=== PATIENT | female | born 1960 | race Caucasian/White ===

== ENCOUNTER 2025-10-07 11:18 | Emergency (ER) | payer OTHER, SELFPAY ==
--- OUTSIDE RECORDS SUMMARY | 2025-10-07 11:22 | XMS_ITS | Clinical Summary ---
Author Organization [facility] Address [address] [place] [address] Care Team Providers Care Career Coordinator Name Role Phone Rafal Glynn MD Primary Care Provider [phone]- [phone] Allergies Active AllergyReactionsCriticalityNoted DavsAensrbctVytdxjgxmzrVvjj89/02/2007 Nsaids (Non-Steroidal Anti-Inflammatory Drug)01/22/2007 stomach upset YyhupeorszlPzvj45/02/2007 Medications MedicationSigDispense QuantityRefillsLast FilledStart DateEnd DateStatus fluticasone (50 mcg per actuation) nasal solution (FLONASE) Indications:Recurrent sinusitis,Dysfunction of both eustachian tubesInhale 1 [place] to both nostrils two times daily. 48 g 4Active propranoloL (INDERAL) 40 mg tablet Indications:Migraine without aura and without status migrainosus, not intractableTake 1 Tablet (40 mg) by mouth two times daily. 180 Tablet 5Active lisinopriL (PRINIVIL; ZESTRIL) 10 mg tablet Indications:Essential hypertensionTake 1 Tablet (10 mg) by mouth once daily. 90 Tablet 5Active Cranberry 500 mg cap Take 1 Capsule (500 mg) by mouth two times daily.5Active cholecalciferol (Vitamin D-3) 2,000 unit capsule Take 1 Capsule (2,000 units) by mouth once daily.5Active meloxicam 15 mg tablet Indications:Primary osteoarthritis of right knee,Primary osteoarthritis of left kneeTake 1 Tablet (15 mg) by mouth once daily. Take with food. Avoid OTC NSAIDS (ibuprofen, aleeve, advil) while you are taking this medication. 90 Tablet 5Active meloxicam 15 mg tablet Indications:Primary osteoarthritis of right knee,Primary osteoarthritis of left kneeTake 1 Tablet (15 mg) by mouth once daily. 28 Tablet Discontinued(Reorder (E-cancel not sent)) Active Problems ProblemNoted DateDiagnosed DateEssential gcdmibvamvaj67/02/2024eactive airway disease, mild intermittent, ysqcazuegscft13/18/2024eviated mfnalx6104/09/2024 Migraine without aura and without status migrainosus, not leginuuxgiz64/14/2015 Rectal mckizqpn33/13/2011 Overview (08/04/2011): Colonoscopy 07/2011 normal repeat in 10 years Degenerative arthritis of left knee06/10/2010Carpal tunnel fejctqpq24/02/2007 Headache(784.0)01/22/2007Esophageal bixzbm1601/22/2007 Overview (11/30/2009): EGD 11/2008 normal Other functional disorder of uvjeoyv9801/22/2007 Overview (08/31/2007): Due to uterine fibroids. Encounters DateTypeDepartmentCare WrwrWbfnfaqnnsa91/28/2025 9:40 AM CSTAncillary Procedure [facility] [address] [place] [address] 09/18/20253187Njdwuq18/11/2025 3:00 PM CSTAncillary Procedure [facility] [address] [place] [address] 09/02/2025 2:45 PM CSTAncillary Procedure [facility] [address] [place] [address] 09/02/2025 2:20 PM CSTOffice Visit [facility] [address] [place] [address] Lokesh Wagner, Hip Pain/problem (Bilateral hip)09/01/20252708Ermrjh46/22/2025 4:15 PM CDTAncillary Procedure [facility] [address] [place] [address] 08/13/20253253Wgjtao51/21/2025 3:00 PM CDTOrders Only [facility] [address] [place] [address] [place], [place] [facility]08/11/20251962Uduhcl12/10/2025 1:10 PM CDTOffice Visit [facility] [address] [place] [address] Paula Beck PA Leg Pain/problem (Painful legs and hips. Does have Arthritis. Pain in soreness in muscle upper legs. Feels that there is some overcompensating when walking. Legs feel fatigued, at bed time hurt really bad. Discuss Lyme's. Have had a tick imbedded 2023 (June.) Reports that there was a circular rash. Pain level has been 10/10 on pain aid scale. )07/31/2025Travelfrom Last 3 Months Immunizations ImmunizationAdministration DatesNext DueAMB Influenza, IIV4 PF (=>6 mos Flulaval,Fluzone Fluarix)(Flu Clinic Only)07/22/2020,07/11/2014COVID-19 VACCINE SPIKEVAX (MODERNA 50MCG/0.5ML) 12YO+ PFS4COVID-19 vaccine (Karisma Kidz- BioNTech 30mcg/0.3mL) PF, MDV110/25/2020INFLUENZA, IIV3 PF (AGE >= 6 MO) 07/24/2024Influenza A (H1N1), Myasujnuxtq72/12/2010Influenza A (H1N1), Inactivated (Age >=3 Years)11/03/2009Influenza, IIV3 (Age 6-35 mos)09/15/2009 Influenza, IIV3 (Age >=3 years)10/07/2013,09/28/2012,07/13/2011,08/26/2009, 09/22/2008,08/31/2007,08/09/2006,08/27/2005,09/13/2003Influenza, HIW287/, 08/01/2022,08/11/2021,07/11/2019,11/07/2016,09/04/2015,07/11/2014RSV, Recombinant ADJ Reconstituted (Arexvy 120MCG/0.5mL)12/02/2023Td (Age >=7 Years) 08/09/2006Td, Preservative Free (age >= 7 Years)08/09/2006Tdap01/03/2025, 10/01/2012 Family History Medical HistoryRelationNameCommentsHypertensionBrother 1KenHypertensionBrother 2 DanThyroid DiseaseBrother 3DavidArthritisFatherElmerHyperlipidemiaFatherElmer HypertensionFatherElmerOsteoarthritisFatherElmerRheum arthritisFatherElmer ArthritisMaternal GrandfatherArthritisMaternal GrandmotherMarthaHypertension Maternal GrandmotherMarthaThyroid DiseaseMaternal GrandmotherMartha HyperlipidemiaMotherDorothyHypertensionMotherDorothyOtherMotherDorothydied of old age and a hip fx at 89CancerPaternal AuntAliceCancer-breastPaternal Aunt AliceArthritisPaternal GrandfatherArthritisPaternal GrandmotherEmmaHypertension Paternal GrandmotherEmmaThyroid DiseasePaternal GrandmotherEmmaCancer-ovarianNo Family HistoryRelationNameStatusCommentsBrother 1KenBrother 2DanBrother 3David FatherElmerDeceasedMaternal GrandfatherMaternal GrandmotherMarthaMotherDorothy DeceasedPaternal AuntAlicePaternal GrandfatherPaternal GrandmotherEmma Social History Tobacco UseTypesPacks/DayYears UsedDateSmoking Tobacco: NeverSmokeless Tobacco: Never Tobacco Cessation:Counseling Given: No Alcohol UseStandard Drinks/WeekCommentsNot Currently0 (1 standard drink = 0.6 oz pure alcohol)1 drink per monthPHQ-2AnswerDate RecordedPHQ-2 TOTAL SCORE0 06/12/2024Social ConnectionsAnswerDate RecordedDo you often feel lonely or isolated from those around you?Financial Resource StrainAnswerDate RecordedDifficulty of Paying Living Vfmbgtpo516/09/2025Difficulty of Paying Living ExpensesNot on file07/31/2025Food InsecurityAnswerDate RecordedDo you worry your food will run out before you are able to buy more? 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 Not on fileNot on file Last Filed Vital Signs Vital SignReadingTime TakenCommentsBlood Wkrsmamn954/8210 1:07 PM CDT Bffbj828708/01/2025 1:07 PM AELQaxrnhjlsss96.6 ??C (97.9 ??F)02/16/2025 9:12 AM CDTRespiratory Chzg912502/16/2025 9:12 AM CDTOxygen Alqpzphzvu71%08/01/2025 1:07 PM CDTInhaled Oxygen Concentration--Xqrpnu784.2 kg (287 lb)08/01/2025 1:07 PM KRITaigzp682 cm (5' 2.6)01/03/2025 2:41 PM CDTBody Mass Index51.49001/03/2025 2:41 PM CDT Plan of Treatment DateTypeDepartmentCare Team (Latest Contact Info)Adlraggchbv72/19/2026 10:00 AM CSTOffice Visit [facility] [address] [address] [place] [address] [place] [address] Health MaintenanceDue DateLast DoneCommentsHIV for age 15-Pap test for age 21-, 08/31/2007Pneumococcal series for age 50+ (1 of 1 - PCV)2012Zoster (shingles) series for age 50+ (1 of 2)2012 Depression screening for age 12+/, 06/18/2022, 06/15/2022, Additional history existsInfluenza Vaccine (#1)/11/2023, 10/18/2023, 08/01/2022, Additional history existsBMI (ht and wt on same day) for age 18+ 6001/03/2025, 03/15/2023, 09/12/2021, Additional history existsMammogram for age 45-756111/19/2024, 09/06/2024, 08/07/2023, Additional history existsLipids for age 45-750//08/2025, 03/22/2023, 05/17/2021, Additional history existsColonoscopy through age 750//01/2022, 10/26/2021, 08/04/2011Tetanus etrzouc08/14/86640201/03/2025, 10/01/2012, 08/09/2006, Additional history existsHepatitis C screening for age 18-79 Cgfksetet79/26/2021SV vaccine for adults or urpuwtykhWtpnzykkh28/10/2024COVID- 19 vaccine gbadefGykhoilxh04/26/2025, 07/24/2024, 12/02/2023, Additional history existsHepatitis B series for 19+Aged OutNo longer eligible based on patient's age to complete this topic Procedures Procedure NamePriorityDate/TimeAssociated DiagnosisCommentsXR MAMMO THAO BILAT NQCTGYAnnvmgb98/28/2025 9:48 AM COACH CLEANER Encounter for screening mammogram for malignant neoplasm of breast XR KNEE 1 VIEW NHMTXEJNWMmsaqnp93/11/2025 2:53 PM COACH CLEANER Chronic pain of left knee Chronic pain of right knee XR KNEE 3 VIEWS HTNPJcqamho57/11/2025 2:53 PM COACH CLEANER Chronic pain of left knee XR HIP 2 VIEWS WO PELVIS YZXDHXjxhivi78/22/2025 4:28 PM CDT Hip pain, right SJOGRENS CAULEJQGZZZchgygo38/21/2025 2:10 PM CDT Positive BRENDA (antinuclear antibody) ANTISCLERODERMA 70 OYZDLLVITPMxhpvhq04/21/2025 2:10 PM CDT Positive BRENDA (antinuclear antibody) ANTI-PUWHWPheziat04/21/2025 2:10 PM CDT Positive BRENDA (antinuclear antibody) DNA DOUBLE-STRANDED (DSDNA) ANTIBODIES BY CRITHIDIA LUCILIAE IFARoutine 08/12/2025 2:10 PM CDT Positive BRENDA (antinuclear antibody) RA USNLILASKMWFGqonjyo33/21/2025 2:10 PM CDT Positive BRENDA (antinuclear antibody) CYCLIC CITRULLINE JAEWGYIGjezbrx15/21/2025 2:10 PM CDT Positive BRENDA (antinuclear antibody) ANTINUCLEAR ANTIBODIES TITER AND PATTERN ([facility] REFLEX ONLY)Uyubjoo3008/01/2025 1:58 PM CDT Proximal limb muscle weakness CBC WITH AUTO HKEVQQKGDBMVXpigswi47/10/2025 1:58 PM CDT Proximal limb muscle weakness Fatigue, unspecified type HXHJZYNHTlehdyn24/10/2025 1:58 PM CDT Proximal limb muscle weakness Fatigue, unspecified type EHRLICHIA CHAFFEENSIS DNA REAL TIME PCR ([facility])Tblfjdd0108/01/2025 1:58 PM CDT Proximal limb muscle weakness Fatigue, unspecified type ANAPLASMA PHAGOCYTOPHILUM DNA, QL REAL TIME PCR ([facility])Juzopzl6308/01/2025 1:58 PM CDT Proximal limb muscle weakness Fatigue, unspecified type CBC WITH AUTO TXDLSQPZYSDSZqnhwmy81/10/2025 1:58 PM CDT Proximal limb muscle weakness Fatigue, unspecified type LYME SCREEN W/XPUMPWJiasvxj87/10/2025 1:58 PM CDT Proximal limb muscle weakness Fatigue, unspecified type ANTINUCLEAR ANTIBODY BY YXGDomzora11/10/2025 1:58 PM CDT Proximal limb muscle weakness SEDIMENTATION BFHPOqnnmdh94/10/2025 1:58 PM CDT Proximal limb muscle weakness CK LCDTTNrxgjpy94/10/2025 1:58 PM CDT Proximal limb muscle weakness TSH WITH KWTSWMSpegqvi52/10/2025 1:58 PM CDT Proximal limb muscle weakness COMP METABOLIC HLCVKMevlkuu17/10/2025 1:58 PM CDT Proximal limb muscle weakness LIPID PANEL W REFLEX MEASURED AGJVhjixvj69/11/2025 7:10 AM CDT Lipid screening MSZJGXDZGAK88/04/2022 8:25 AM COACH CLEANER ANTI RKEBjounix92/26/2021 10:12 AM CDT Need for hepatitis C screening test 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 Recommend annual mammograms. MAMMOGRAM ASSESSMENT: ??ACR 1 Negative PATIENTS: You will also receive a letter with your examination results in an easy to read format. ??If you have questions about your results, please contact your referring provider. Narrative 09/19/2025 1:45 PM COACH CLEANER For Patients: As a result of the Cures Act, medical imaging exams and procedure reports are released immediately into your electronic medical record. You may view this report before your referring provider. If you have questions, please contact your health care provider. XR MAMMO THAO BILAT SCREEN [[id number]] CLINICAL HISTORY: ??This is an asymptomatic 64 y.o. patient. INDICATION FOR EXAM: Mammogram Screening. TECHNIQUE: CC and MLO views were obtained. ??This study was evaluated with the assistance of Computer-Aided Detection. Breast Tomosynthesis was used in interpretation. COMPARISON FILM: Yes 09/06/24 [facility] 08/07/23 [facility] FINDINGS: ??The breasts are almost entirely fatty. There are no dominant masses, suspicious micro calcifications or areas of architectural distortion. Authorizing ProviderResult TypeResult StatusMark Deepak Glynn MDMAMMOFinal Result * XR KNEE 1 VIEW BILATERAL (09/02/2025 2:53 PM COACH CLEANER)Anatomical RegionLaterality ModalityKNEES, KNEE L, KNEE RComputed RadiographySpecimen (Source)Anatomical Location / LateralityCollection Method / VolumeCollection TimeReceived Time 09/02/2025 3:41 PM COACH CLEANER Impressions 09/02/2025 3:41 PM COACH CLEANER Medial compartment narrowing left knee with increased varus angulation. Lateral compartment narrowing right knee with increased valgus angulation. Bilateral spurring. No fracture. Dictated by Archie Martinez MD @ 09/02/2025 3:41:40 PM (Electronically Signed) Narrative 09/02/2025 3:41 PM COACH CLEANER For Patients: As a result of the Cures Act, medical imaging exams and procedure reports are released immediately into your electronic medical record. You may view this report before your referring provider. If you have questions, please contact your health care provider. Indication: Chronic pain of right knee Chronic pain of left knee Technique: PA Mccurdy standing film of both knees Comparison: 09/02/2025 Procedure Note Archie Martinez MD - 09/02/2025 For Patients: As a result of the Cures Act, medical imagingexams and procedure reports are released immediately into your electronicmedical record. You may view this report before your referring provider.If you have questions, please contact your health care provider. Indication: Chronic pain of right knee Chronic pain of left knee Technique: PA Mccurdy standing film of both knees Comparison: 09/02/2025 IMPRESSION: Medial compartment narrowing left knee with increased varus angulation.Lateral compartment narrowing right knee with increased valgus angulation.Bilateral spurring. No fracture. Dictated by Archie Martinez MD @ 09/02/2025 3:41:40 PM (Electronically Signed) Authorizing ProviderResult TypeResult StatusDustin Gino Wagner DOGENERAL IMAGING Final Result * XR KNEE 3 VIEWS LEFT (09/02/2025 2:53 PM COACH CLEANER)Anatomical RegionLaterality ModalityKNEES, KNEE LComputed RadiographySpecimen (Source)Anatomical Location / LateralityCollection Method / VolumeCollection TimeReceived Time09/02/2025 3:42 PM COACH CLEANER Impressions 09/02/2025 3:42 PM COACH CLEANER Medial compartment narrowing and spurring with increased varus angulation. Patellofemoral narrowing and spurring with exuberant hypertrophic change. No large joint effusion. Lateral compartment spurring. Dictated by Archie Martinez MD @ 09/02/2025 3:42:27 PM (Electronically Signed) Narrative 09/02/2025 3:42 PM COACH CLEANER For Patients: As a result of the Cures Act, medical imaging exams and procedure reports are released immediately into your electronic medical record. You may view this report before your referring provider. If you have questions, please contact your health care provider. Indication: Chronic pain Technique: Three views left knee Procedure Note Archie Martinez MD - 09/02/2025 For Patients: As a result of the Cures Act, medical imagingexams and procedure reports are released immediately into your electronicmedical record. You may view this report before your referring provider.If you have questions, please contact your health care provider. Indication: Chronic pain Technique: Three views left knee IMPRESSION: Medial compartment narrowing and spurring with increased varus angulation. Patellofemoral narrowing and spurring with exuberant hypertrophic change.No large joint effusion. Lateral compartment spurring. Dictated by Archie Martinez MD @ 09/02/2025 3:42:27 PM (Electronically Signed) Authorizing ProviderResult TypeResult StatusDustin Gino Wagner DOGENERAL IMAGING Final Result * XR HIP 2 VIEWS RIGHT (08/13/2025 4:28 PM CDT)Anatomical RegionLaterality ModalityHIPS, HIPR, PelvisComputed RadiographySpecimen (Source)Anatomical Location / LateralityCollection Method / VolumeCollection TimeReceived Time 08/14/2025 2:17 PM CDT Narrative 08/14/2025 2:17 PM CDT For Patients: As a result of the Cures Act, medical imaging exams and procedure reports are released immediately into your electronic medical record. You may view this report before your referring provider. If you have questions, please contact your health care provider. Indication: Right hip pain Technique: Two views right hip Comparison: None Findings: Narrowing and spurring both hips. Spurring at the iliac crest and greater trochanter. Chronic ossicle adjacent to the greater trochanter. No fracture. Degenerative changes at the right sacroiliac joint. Impression: Degenerative joint disease right hip. Dictated by Archie Martinez MD @ 08/14/2025 2:17:01 PM (Electronically Signed) Procedure Note Archie Martinez MD - 08/14/2025 For Patients: As a result of the Cures Act, medical imagingexams and procedure reports are released immediately into your electronicmedical record. You may view this report before your referring provider.If you have questions, please contact your health care provider. Indication: Right hip pain Technique: Two views right hip Comparison: None Findings: Narrowing and spurring both hips. Spurring at the iliac crest and greater trochanter. Chronic ossicle adjacent to the greater trochanter. Nofracture. Degenerative changes at the right sacroiliac joint. Impression: Degenerative joint disease right hip. Dictated by Archie Martinez MD @ 08/14/2025 2:17:01 PM (Electronically Signed) Authorizing ProviderResult TypeResult StatusPaula Beck PAGENERAL IMAGINGFinal Result * ANTISCLERODERMA 70 ANTIBODIES (08/12/2025 2:10 PM CDT)ComponentValueRef Range Test MethodAnalysis TimePerformed AtPathologist SignatureSCL-70 ANTIBODY<1.0 NEG<1.0 NEG AI08/13/2025 2:03 PM CDTQUEST DIAGNOSTICSSpecimen (Source) Anatomical Location / LateralityCollection Method / VolumeCollection Time Received TimeBloodBLOOD SPECIMEN / UnknownQuest Collect / Voalyjm6208/12/2025 2:10 PM CDT1 2:10 PM CDT Narrative Authorizing ProviderResult TypeResult StatusPaula Beck [place] OUTSFinal ResultPerforming OrganizationAddressty/State/[facility] CodePhone Number [facility] [address] [phone], * ANTI-ANDRES (08/12/2025 2:10 PM CDT)ComponentValueRef RangeTest MethodAnalysis TimePerformed AtPathologist SignatureSM ANTIBODY<1.0 NEG<1.0 NEG AI08/13/2025 2:03 PM CDTQUEST DIAGNOSTICSSpecimen (Source)Anatomical Location / Laterality Collection Method / VolumeCollection TimeReceived TimeBloodBLOOD SPECIMEN / UnknownQuest Collect / Ekubbie0808/12/2025 2:10 PM CDT1 2:10 PM CDT Narrative Authorizing ProviderResult TypeResult StatusPaula Beck [place] OUTSFinal ResultPerforming OrganizationAddressCity/State/[facility] CodePhone Number [facility] [address] [phone], * SJOGRENS ANTIBODIES (08/12/2025 2:10 PM CDT)ComponentValueRef RangeTest Method Analysis TimePerformed AtPathologist SignatureSJOGREN'S ANTIBODY (SS-B)<1.0 NEG<1.0 NEG AI08/13/2025 2:03 PM CDTQUEST DIAGNOSTICSSJOGREN'S ANTIBODY (SS-A) <1.0 NEG<1.0 NEG AI08/13/2025 2:03 PM CDTQUEST DIAGNOSTICSSpecimen (Source) Anatomical Location / LateralityCollection Method / VolumeCollection Time Received TimeBloodBLOOD SPECIMEN / UnknownQuest Collect / Vjdeeye3508/12/2025 2:10 PM CDT1 2:10 PM CDT Narrative Authorizing ProviderResult TypeResult StatusPaula Beck [facility] OUTSFinal ResultPerforming OrganizationAddressty/State/ZIP CodePhone Number [facility] [address] [phone], * CYCLIC CITRULLINE PEPTIDE (08/12/2025 2:10 PM CDT)ComponentValueRef RangeTest MethodAnalysis TimePerformed AtPathologist SignatureCYCLIC CITRULLINATED PEPTIDE (CCP) AB (IGG)<95NGFUZ2008/13/2025 12:54 PM CDTQUEST DIAGNOSTICSComment: Reference Range Negative: <20 Weak Positive: ? 20-39 Moderate Positive: ?? 40-59 Strong Positive: >59 Specimen (Source)Anatomical Location / LateralityCollection Method / Volume Collection TimeReceived TimeBloodBLOOD SPECIMEN / UnknownQuest Collect / Unknown 08/12/2025 2:10 PM CDT1 2:10 PM CDT Narrative Authorizing ProviderResult TypeResult StatusPaula Beck [facility] OUTSArnot Ogden Medical Centeral ResultPerforming OrganizationAddressSumma Health [facility]/ZIP CodePhone Number [facility] [address] [phone], * RA QUANTITATIVE (08/12/2025 2:10 PM CDT)ComponentValueRef RangeTest Method Analysis TimePerformed AtPathologist SignatureRHEUMATOID FACTOR<10<14 IU/mL 08/13/2025 3:15 PM CDTQUEST DIAGNOSTICSSpecimen (Source)Anatomical Location / LateralityCollection Method / VolumeCollection TimeReceived TimeBloodBLOOD SPECIMEN / UnknownQuest Collect / Kkjhdlk8808/12/2025 2:10 PM CDT1 2:10 PM CDT Narrative Authorizing ProviderResult TypeResult StatusPaula Beck [facility] OUTSFinal ResultPerforming OrganizationAddressty/State/ZIP CodePhone Number [facility] [address] [place] [address], * [id number] (08/12/2025 2:10 PM CDT)ComponentValueRef RangeTest Method Analysis TimePerformed AtPathologist SignatureDNA (DS) ANTIBODY<1IU/mL 08/13/2025 2:03 PM CDTQUEST DIAGNOSTICSComment: ? IU/mL ? Interpretation < or = 4 Negative ? 5-9 ? Indeterminate > or = 10 Positive Specimen (Source)Anatomical Location / LateralityCollection Method / Volume Collection TimeReceived TimeBloodBLOOD SPECIMEN / UnknownQuest Collect / Unknown 08/12/2025 2:10 PM CDT1 2:10 PM CDT Narrative Authorizing ProviderResult TypeResult StatusPaula Beck [facility] ResultPerforming OrganizationAddressty/[facility]/ZIP CodePhone Number [facility] [place] [address] [place] [address], * (ABNORMAL) ANTINUCLEAR ANTIBODIES TITER AND PATTERN ([facility] REFLEX ONLY) (08/01/2025 1:58 PM CDT)ComponentValueRef RangeTest MethodAnalysis Time Performed AtPathologist SignatureANA PATTERNNuclear, Speckled(A)08/03/2025 5:09 AM CDTQUEST DIAGNOSTICSComment: Speckled pattern is associated with mixed connective tissue disease (MCTD), systemic lupus erythematosus (SLE), Sjogren's syndrome, dermatomyositis, and systemic sclerosis/polymyositis overlap. AC-2,4,5,29: Speckled International Consensus on BRENDA Patterns (https://doi.org/10.1515/nzdz-6913-6714) BRENDA TITER1:80(H)titer08/03/2025 5:09 AM CDTQUEST DIAGNOSTICSComment: A low level BRENDA titer may be present in pre-clinical autoimmune diseases and normal individuals. ?Reference Range <1:40 Negative ?1:40-1:80 ?Low Antibody Level >1:80 Elevated Antibody Level Specimen (Source)Anatomical Location / LateralityCollection Method / Volume Collection TimeReceived TimeBloodBLOOD SPECIMEN / UnknownQuest Collect / Unknown 08/01/2025 1:58 PM CDT1 1:58 PM CDT Narrative Authorizing ProviderResult TypeResult StatusMnstephanie Beck PAL[employer]ORY Final ResultPerforming OrganizationAddressty/State/ZIP CodePhone Number [facility] [address] [phone], * EHRLICHIA CHAFFEENSIS DNA REAL TIME PCR ([facility]) [[id number]] - [facility] IN [facility] (08/01/2025 1:58 PM CDT)ComponentValueRef RangeTest MethodAnalysis Time Performed AtPathologist SignatureEHRLICHIA CHAFFEENSIS DNA REAL TIME PCRNOT QHZWPLAR54/14/2025 9:37 AM CDTQUEST DIAGNOSTICSComment: REFERENCE RANGE: NOT DETECTED This test was developed and its analytical performance characteristics have been determined by [facility]. It has not been cleared or approved by FDA. This assay has been validated pursuant to the CLIA regulations and is used for clinical purposes. Specimen (Source)Anatomical Location / LateralityCollection Method / Volume Collection TimeReceived TimeBloodBLOOD SPECIMEN / UnknownQuest Collect / Unknown 08/01/2025 1:58 PM CDT1 1:58 PM CDT Narrative Authorizing ProviderResult TypeResult StatusMnstephanie Beck PASEND OUTSFinal ResultPerforming OrganizationAddressty/State/ZIP CodePhone Number [facility] [address] [place] [address], * ANAPLASMA PHAGOCYTOPHILUM DNA, QL REAL TIME PCR ([facility]) [[id number]] - [facility] (08/01/2025 1:58 PM CDT)ComponentValueRef RangeTest MethodAnalysis Time Performed AtPathologist SignatureANAPLASMA PHAGOCYTOPHILUM DNA, QL REAL TIME PCRNOT FMRSAFAP23/14/2025 9:43 AM CDTQUEST DIAGNOSTICSComment: REFERENCE RANGE: ??NOT DETECTED This test was developed and its analytical performance characteristics have been determined by [facility]. It has not been cleared or approved by FDA. This assay has been validated pursuant to the CLIA regulations and is used for clinical purposes. Specimen (Source)Anatomical Location / LateralityCollection Method / Volume Collection TimeReceived TimeBloodBLOOD SPECIMEN / UnknownQuest Collect / Unknown 08/01/2025 1:58 PM CDT1 1:58 PM CDT Narrative Authorizing ProviderResult TypeResult StatusMnstephanie Beck PASEND OUTSFinal ResultPerforming OrganizationAddressCity/State/ZIP CodePhone Number [facility] [address] [address], * SEDIMENTATION RATE (08/01/2025 1:58 PM CDT)ComponentValueRef RangeTest Method Analysis TimePerformed AtPathologist SignatureSED RATE BY MODIFIED WESTERGREN 25< OR = 30 mm/h1 4:11 AM CDTQUEST DIAGNOSTICSSpecimen (Source) Anatomical Location / LateralityCollection Method / VolumeCollection Time Received TimeBloodBLOOD SPECIMEN / UnknownQuest Collect / Yiznncq7408/01/2025 1:58 PM CDT1 1:58 PM CDT Narrative Authorizing ProviderResult TypeResult StatusMnstephanie Beck PAHEMATOLOGY Final ResultPerforming OrganizationAddressty/State/ZIP CodePhone Number [facility] [address] [address], [place] [phone] * (ABNORMAL) ANTINUCLEAR ANTIBODY BY IFA (08/01/2025 1:58 PM CDT)ComponentValue Ref RangeTest MethodAnalysis TimePerformed AtPathologist SignatureANA SCREEN, IFAPOSITIVE(A)PBVLTZYG59/12/2025 5:09 AM CDTQUEST DIAGNOSTICSComment: BRENDA IFA is a first line screen for detecting the presence of up to approximately 150 autoantibodies in various autoimmune diseases. A positive BRENDA IFA result is suggestive of autoimmune disease and reflexes to titer and pattern. Further laboratory testing may be considered if clinically indicated. For additional information, please refer to http://education.Shoot Extreme/faq/JMQ598 (This link is being provided for informational/ educational purposes only.) ?? Specimen (Source)Anatomical Location / LateralityCollection Method / Volume Collection TimeReceived TimeBloodBLOOD SPECIMEN / UnknownQuest Collect / Unknown 08/01/2025 1:58 PM CDT1 1:58 PM CDT Narrative Authorizing ProviderResult TypeResult StatusMestephanie Beck PACHEMISTRYFinal ResultPerforming OrganizationAddressCity/State/ZIP CodePhone Number [facility] [address] [address], * CBC WITH AUTO DIFFERENTIAL (08/01/2025 1:58 PM CDT)ComponentValueRef RangeTest MethodAnalysis TimePerformed AtPathologist SignatureWHITE BLOOD CELL COUNT7.8 3.8 - 10.8 Thousand/uL08/02/2025 3:15 AM CDTQUEST DIAGNOSTICSRED BLOOD CELL COUNT4.583.80 - 5.10 Million/uL08/02/2025 3:15 AM CDT[facility] NONRTDOBEA36.711.7 - 15.5 g/dL08/02/2025 3:15 AM CDT[facility] OQLFTMHQWE24.535.0 - 45.0 %08/02/2025 3:15 AM CDT[facility] RNCWSHLCARHDPG18.280.0 - 100.0 fL08/02/2025 3:15 AM CDT[facility] SFVBIHHKDJIGMD34.727.0 - 33.0 pg 08/02/2025 3:15 AM CDTQUEST MKEDYTFQVMTRLIP69.232.0 - 36.0 g/dL08/02/2025 3:15 AM CDTQUEST DIAGNOSTICSComment: For adults, a slight decrease in the calculated MCHC value (in the range of 30 to 32 g/dL) is most likely not clinically significant; however, it should be interpreted with caution in correlation with other red cell parameters and the patient's clinical condition. RDW13.711.0 - 15.0 %08/02/2025 3:15 AM CDTQUEST DIAGNOSTICSPLATELET DJUZL842261 - 400 Thousand/uL08/02/2025 3:15 AM CDTQUEST OPGVPNNUTBMMJU54.97.5 - 12.5 fL 08/02/2025 3:15 AM CDT[facility] SKOMRSBVPEEWOUPMVRIBHL81%08/02/2025 3:15 AM CDTQUEST FQNZMVXTNQYROVOQLJCPXI82.1%08/02/2025 3:15 AM CDTQUEST DIAGNOSTICSMONOCYTES9.1% 08/02/2025 3:15 AM CDTQUEST DIAGNOSTICSEOSINOPHILS3.3%08/02/2025 3:15 AM CDT [facility] DIAGNOSTICSBASOPHILS0.5%08/02/2025 3:15 AM CDTQUEST DIAGNOSTICSABSOLUTE YXMKTOIZFIW02137270 - 7800 cells/uL08/02/2025 3:15 AM CDT[facility] ABSOLUTE UQSMMIVGROT1748503 - 3900 cells/uL08/02/2025 3:15 AM CDTQUEST DIAGNOSTICSABSOLUTE QRQPAYMJR232824 - 950 cells/uL08/02/2025 3:15 AM CDTQUEST DIAGNOSTICSABSOLUTE YPPSVVSPQCH30983 - 500 cells/uL08/02/2025 3:15 AM CDTQUEST DIAGNOSTICSABSOLUTE MDALCAYPQ459 - 200 cells/uL08/02/2025 3:15 AM CDTQUEST DIAGNOSTICSSpecimen (Source)Anatomical Location / LateralityCollection Method / VolumeCollection TimeReceived TimeBloodBLOOD SPECIMEN / UnknownQuest Collect / Vsrpjfl9408/01/2025 1:58 PM CDT1 1:58 PM CDT Narrative Authorizing ProviderResult TypeResult StatusMestephanie Beck PAHEMATOLOGY Final ResultPerforming OrganizationAddressCity/State/ZIP CodePhone Number [facility] [place] [address] [place] [address], * TSH WITH REFLEX (08/01/2025 1:58 PM CDT)ComponentValueRef RangeTest Method Analysis TimePerformed AtPathologist SignatureTSH W/REFLEX TO FT42.950.40 - 4.50 mIU/L10/09/2025 5:09 AM CDTQUEST DIAGNOSTICSSpecimen (Source)Anatomical Location / LateralityCollection Method / VolumeCollection TimeReceived Time BloodBLOOD SPECIMEN / UnknownQuest Collect / Nrhqrrh5808/01/2025 1:58 PM CDT 08/01/2025 1:58 PM CDT Narrative Authorizing ProviderResult TypeResult StatusPaula Beck PACHEMISTRYFinal ResultPerforming OrganizationAddressCity/State/ZIP CodePhone Number [facility] [address] [place] [address], * Lyme Screen w/Reflex [[id number]] (08/01/2025 1:58 PM CDT)ComponentValueRef Range Test MethodAnalysis TimePerformed AtPathologist SignatureLYME AB, SCREEN< or = 0.02phphg8808/06/2025 5:59 PM CDTQUEST DIAGNOSTICSComment: REFERENCE RANGE: < OR = 0.90 Index Index ? Interpretation < OR = 0.90 NEGATIVE 0.91 - 1.09 ? EQUIVOCAL > OR = 1.10 POSITIVE This assay measures Lyme Disease (Borrelia burgdorferi) IgG plus IgM antibodies; it does not distinguish results that are both IgG and IgM positive from results that are either IgG or IgM positive. As recommended by the Centers for Disease Control and Prevention (CDC), all samples with positive or equivocal results in this screening assay will be tested using separate supplemental Lyme IgG and IgM immunoassays. Positive or equivocal screening assay results should not be interpreted as truly positive until verified as such using the supplemental assays. Screening and/or supplemental tests for Lyme disease antibodies may be falsely negative in early stages of Lyme disease, including the period when erythema migrans is apparent. These assays may be falsely positive in patients with other spirochetal diseases (e.g., syphilis) or infectious mononucleosis. Specimen (Source)Anatomical Location / LateralityCollection Method / Volume Collection TimeReceived TimeBloodBLOOD SPECIMEN / Unknown[facility] Collect / Unknown 08/01/2025 1:58 PM CDT1 1:58 PM CDT Narrative Authorizing ProviderResult TypeResult StatusPaula Beck PASEND OUTSFinal ResultPerforming OrganizationAddressCity/State/ZIP CodePhone Number [facility] [address] [address], * FERRITIN (08/01/2025 1:58 PM CDT)ComponentValueRef RangeTest MethodAnalysis TimePerformed AtPathologist LhexkhovlSZYDTEFC72476 - 288 ng/mL08/03/2025 5:09 AM CDTQUEST DIAGNOSTICSSpecimen (Source)Anatomical Location / Laterality Collection Method / VolumeCollection TimeReceived TimeBloodBLOOD SPECIMEN / UnknownQuest Collect / Xrylkxi0308/01/2025 1:58 PM CDT1 1:58 PM CDT Narrative Authorizing ProviderResult TypeResult StatusPaula Beck PACHEMISTRYFinal ResultPerforming OrganizationAddressCity/State/ZIP CodePhone Number [facility] [address] [address], * CK TOTAL (08/01/2025 1:58 PM CDT)ComponentValueRef RangeTest MethodAnalysis TimePerformed AtPathologist SignatureCREATINE KINASE, TJZWR6652 - 243 U/L 08/02/2025 3:54 AM CDTQUEST DIAGNOSTICSSpecimen (Source)Anatomical Location / LateralityCollection Method / VolumeCollection TimeReceived TimeBloodBLOOD SPECIMEN / Unknown[facility] Collect / Tpnitbi7108/01/2025 1:58 PM CDT1 1:58 PM CDT Narrative Authorizing ProviderResult TypeResult StatusMestephanie Beck PACHEMISTRYFinal ResultPerforming OrganizationAddressCity/State/ZIP CodePhone Number [facility] [address] [address], [place] [phone] * COMP METABOLIC PANEL (08/01/2025 1:58 PM CDT)ComponentValueRef RangeTest MethodAnalysis TimePerformed AtPathologist UysttwnkwZMLBDA429858 - 146 mmol/L 08/02/2025 3:54 AM CDTQUEST DIAGNOSTICSPOTASSIUM4.43.5 - 5.3 mmol/L10/08/2025 3:54 AM CDTQUEST XFUCKRVQHLOQFWAQFDU88152 - 110 mmol/L1 3:54 AM CDT [facility] DIAGNOSTICSCARBON ZOGPXTD5043 - 32 mmol/L1 3:54 AM CDTQUEST QLPLLQUMDAJSHTXIYL3187 - 99 mg/dL08/02/2025 3:54 AM CDT[facility] Comment: ? Fasting reference interval CALCIUM9.58.6 - 10.4 mg/dL08/02/2025 3:54 AM CDTQUEST DIAGNOSTICSCREATININE0.89 0.50 - 1.05 mg/dL08/02/2025 3:54 AM CDTQUEST DIAGNOSTICSBUN/CREATININE RATIOSEE NOTE: (calc)08/02/2025 3:54 AM CDTQUEST DIAGNOSTICSComment: ?? Not Reported: BUN and Creatinine are within ?? reference range. ? EGFR73> OR = 60 mL/min/1.70a34908/02/2025 3:54 AM CDTQUEST DIAGNOSTICSALBUMIN4.3 3.6 - 5.1 g/dL08/02/2025 3:54 AM CDTQUEST DIAGNOSTICSPROTEIN, TOTAL7.66.1 - 8.1 g/dL08/02/2025 3:54 AM CDTQUEST DIAGNOSTICSBILIRUBIN, TOTAL0.30.2 - 1.2 mg/dL 08/02/2025 3:54 AM CDTBPA Solutions DIAGNOSTICSALKALINE ENXKHACOORS92320 - 153 U/L 08/02/2025 3:54 AM CDTBPA Solutions BITEGGDMOAVLFS195 - 29 U/L1 3:54 AM CDT [facility] QYEUQSWLXTWGBN3620 - 35 U/L1 3:54 AM CDTQUEST DIAGNOSTICSUREA NITROGEN (BUN)177 - 25 mg/dL08/02/2025 3:54 AM CDTQUEST DIAGNOSTICSGLOBULIN3.3 1.9 - 3.7 g/dL (calc)08/02/2025 3:54 AM CDTQUEST DIAGNOSTICSALBUMIN/GLOBULIN RATIO1.31.0 - 2.5 (calc)08/02/2025 3:54 AM CDTQUEST DIAGNOSTICSSpecimen (Source) Anatomical Location / LateralityCollection Method / VolumeCollection Time Received TimeBloodBLOOD SPECIMEN / UnknownQuest Collect / Zlwdojl5408/01/2025 1:58 PM CDT1 1:58 PM CDT Narrative Authorizing ProviderResult TypeResult StatusMestephanie Beck PACHEMISTRYFinal ResultPerforming OrganizationAddressCity/State/ZIP CodePhone Number [facility] [address] [place] [address], * (ABNORMAL) LIPID PANEL W REFLEX MEASURED LDL (12/31/2024 7:10 AM CDT)Component ValueRef RangeTest MethodAnalysis TimePerformed AtPathologist Signature CHOLESTEROL, WDURD317(H)<200 mg/dLQuest [facility] DaleHDL DNLUFDESZDU66 > OR = 50 mg/dLQuest [facility] EqwlBFAIXECRHXVZO398(H)<150 mg/dLQuest [facility] DaleLDL-UDULBXNTLIU914(H)mg/dL (calc)[place] DaleComment: Reference range: <100 Desirable range <100 mg/dL for primary prevention; <70 mg/dL for patients with CHD or diabetic patients with > or = 2 CHD risk factors. LDL-C is now calculated using the Ravindra-Efren calculation, which is a validated novel method providing better accuracy than the Friedewald equation in the estimation of LDL-C. Ravindra SS et al. ROCAEL. 2013;310(19): 2319-5061 (http://education.Shoot Extreme/faq/KMV339) CHOL/HDLC RATIO3.7<5.0 (calc)[facility] HospitaleNON HDL ITWUZNLKADG603 (H)<130 mg/dL (calc)[facility] HospitaleComment: For patients with diabetes plus 1 major ASCVD risk factor, treating to a non-HDL-C goal of <100 mg/dL (LDL-C of <70 mg/dL) is considered a therapeutic option. Specimen (Source)Anatomical Location / LateralityCollection Method / Volume Collection TimeReceived TimeBloodBLOOD SPECIMEN / Wrhvlhc6512/31/2024 7:10 AM CDT 12/31/2024 7:10 AM CDT Narrative Authorizing ProviderResult TypeResult StatusMark Deepak Glynn MDCHEMISTRYFinal ResultPerforming OrganizationAddressCity/State/ZIP CodePhone Number [facility] [address] [place] [address], [facility] [address] [place] [address] * COLONOSCOPY (10/26/2021 8:25 AM COACH CLEANER)Specimen (Source)Anatomical Location / LateralityCollection Method / VolumeCollection TimeReceived Time10/26/2021 8:25 AM COACH CLEANER Narrative Transcriptions Ravindra Moreno MD - 10/26/2021 3:48 PM CST Patient Name: Ashley Alonzo Procedure Date: 10/26/2021 Gender: Female Date of : 1960 Admit Type: Outpatient Procedure: Colonoscopy Proceduralist: Ravindra Moreno MD , Shameka Fowler (Nurse) Indications/Pre-Op Diagnosis: Screening for colorectal malignant neoplasm, Last colonoscopy: July 2011 Medications: Fentanyl 100 micrograms IV, Midazolam 2 mgIV, The level of sedation administered wasmoderate Procedure Description: The patient had risks, benefits and alternatives explained to andgave informed consent. The patient had a stable cardiopulmonary status and judged an adequate candidate for conscious sedation. The Colonoscope was passed through the anus and advanced to 6 cm into the ileum. The colonoscopy was performed without difficulty. Thepatient tolerated the procedure well. The quality of the bowel preparationwas good. The terminal ileum, ileocecal valve, appendiceal orifice, and rectum were photographed. Complications: No immediate complications. Estimated Blood Loss & Specimen: Estimated blood loss: none. Specimen collected - None Findings: The perianal and digital rectal examinations were normal. The terminal ileum appeared normal. A few small-mouthed diverticula were found in the sigmoid colon. The exam was otherwise without abnormality on direct and retroflexion views. Impressions/Post-Op Diagnosis: - The examined portion of the ileum was normal. - Diverticulosis in the sigmoid colon. - The examination was otherwise normal on direct and retroflexionviews. - No specimens collected. Recommendation: - Patient has a contact number available for emergencies. The signsand symptoms of potential delayed complications were discussed with the patient. Return to normal activities tomorrow. Written discharge instructions were provided to the patient. - Resume previous diet. - Continue present medications. - Repeat colonoscopy in 10 years for screening purposes. Moderate Sedation: Moderate (conscious) sedation was administered by the endoscopy nurse and supervised by the endoscopist. The following parameters were monitored: oxygen saturation, heart rate, respiratory rate, blood pressure, adequacy of pulmonary ventilation and reponse to care. Please refer to the patient's medical record flowsheets and nursing notes for moderate sedation details. Total physician intraservice time was 15 minutes. Ravindra Moreno MD 10/26/2021 3:46:24 PM This report has been signed electronically. Note Initiated On: 10/26/2021 8:25 AM Procedure Code(s): --- Professional --- 19183, Colonoscopy, flexible; diagnostic, including collection of specimen(s) bybrushing or washing, when performed (separateprocedure) Diagnosis Code(s): --- Professional --- Z12.11, Encounter for screening formalignant neoplasm of colon K57.30, Diverticulosis of large intestine without perforation or abscess withoutbleeding CPT copyright 2020 [employer]. All rights reserved. The codes documented in this report are preliminary and upon balloon design printer reviewmay be revised to meet current compliance requirements. Scope In: 8:39:08 AM Scope Withdrawal Time 0 hours 7 minutes 8 seconds Scope Out: 8:51:19 AM Authorizing ProviderResult TypeResult StatusMartin Daljit Moreno MDPROCEDURE ORD Edited Result - Final * ANTI HCV (05/17/2021 10:12 AM CDT)ComponentValueRef RangeTest MethodAnalysis TimePerformed AtPathologist SignatureHEPATITIS C ANTIBODYNon-Reactive Non-Dpmerzbm89/26/2021 6:04 PM CDS[facility] Comment:Antibodies to HCV not detected; does not exclude the possibility of exposure to HCV.Specimen (Source)Anatomical Location / LateralityCollection Method / VolumeCollection TimeReceived TimeBloodBLOOD SPECIMEN / Unknown Venipuncture / Gsisxcq1805/17/2021 10:12 AM CDT05/17/2021 10:12 AM CDT Narrative Authorizing ProviderResult TypeResult StatusKaitlin Geni Powell PASEND OUTS Final ResultPerforming OrganizationAddressCity/State/ZIP CodePhone Number [facility] [address] [place] [address], * pap (11/03/2009 11:34 AM COACH CLEANER)ComponentValueRef RangeTest MethodAnalysis Time Performed AtPathologist SignatureCYTOLOGYCYTOPATHOLOGY REPORT [facility] Status: Final Status ?[id number] CLINICAL INFORMATION Last Date of LMP ? :10/17/2009 Last Pap Date ?:08/31/2007 Last Pap Result ?:NIL ABN Fletcher/Bx Past 5 YRS :None Hormone Usage ?:BCP/OCP/Patch/Ring Menstrual Status ? :Regular Periods Fletcher/Bx done today ? :No Additional Information :None given HPV Request ?:HPV if ASCUS SPECIMEN SOURCE ?:Cervical/vaginal ThinPrep Vial, screening SPECIMEN ADEQUACY ?:Satisfactory for evaluation Endocervical component ? present. INTERPRETATION/RESULT Negative for intraepithelial lesion or malignancy (NIL) Cytology 1st Screener ??:gn Signed by ?:gn This specimen was screened by the FDA approved ThinPrep Imaging System and manually reviewed. NOTE: ??The Pap test is a screening technique, not a diagnostic procedure. ??It is used ??primarily to screen for squamous cancers and precursor lesions. ??Published studies have shown that it is subject to both false negative and false positive results. ??The pap test should not be used as the sole means to diagnose or exclude pre-malignant and malignant lesions. COLLECTED:11/03/09 ? ACCESSIONED: ??11/04/09 ?? SIGNED: ??11/06/09[facility] NETWORKpecimen (Source)Anatomical Location / LateralityCollection Method / VolumeCollection TimeReceived TimeCervical/Vaginal (Cervical/Vaginal)11/03/2009 11:34 AM COACH CLEANER 11/03/2009 11:33 AM COACH CLEANER Narrative Authorizing ProviderResult TypeResult StatusMark Deepak Glynn MD PATHOLOGY/CYTOLOGYFinal ResultPerforming OrganizationAddressCity/State/ZIP Code Phone Number [facility] [place]NAL ZIP [phone] [address] from Last 3 Months or Most Recently Relevant to Health Maintenance Insurance [employer] [id number] Care Teams Team MemberRelationshipSpecialtyStart DateEnd Rafal Glynn MD [address] [id number] [facility]
[2025-10-07 11:31] VITALS: BP 169/94; PULSE 73; RESP 20; TEMP 36.6; O2SAT 94; BMI 49.9
--- NOTE | 2025-10-07 11:35 | CRLHL7_ITS ---
For Patients: As a result of the Century Cures Act, medical imaging exams and procedure reports are released immediately into your electronic medical record. You may view this report before your referring provider. If you have questions, please contact your health care provider. INDICATION: Confusion, memory loss. COMPARISON: None. TECHNIQUE: CT of the brain / head without intravenous contrast. Multiplanar axial, coronal, and sagittal reformats were reconstructed. FINDINGS: No intracranial hemorrhage. Parenchymal volume is well preserved for age. Normal appearance of the white matter. No acute or subacute cortically based infarct. No mass or mass effect. Normal ventricles. No skull fractures. No worrisome focal bone lesion. Hyperostosis frontalis internus. IMPRESSION: Normal head CT. Please note that all CT scans at this facility use dose modulation, iterative reconstruction, and/or weight-based dosing when appropriate to reduce radiation dose to as low as reasonably achievable. Dictated by Sera Pena MD @ 10/07/2025 12:05:31 PM (Electronically Signed)
--- NOTE | 2025-10-07 12:24 | CRLHL7_ITS ---
For Patients: As a result of the Century Cures Act, medical imaging exams and procedure reports are released immediately into your electronic medical record. You may view this report before your referring provider. If you have questions, please contact your health care provider. INDICATION: Acute stroke. TECHNIQUE: CTA head using intravenous contrast with bolus tracking, 3D angiographic rendering using maximum intensity projection (MIP) and images permanently archived. CTA neck using intravenous contrast with bolus tracking, 3D angiographic rendering using maximum intensity projection (MIP) and images permanently archived. FINDINGS: CTA head: There is normal opacification of the intracranial vasculature. There is no large vessel occlusion or significant intracranial stenosis. No aneurysm is identified. CTA neck: There is marked tortuosity of the cervical vasculature. There is no significant carotid artery stenosis or dissection. There is no significant vertebral artery stenosis or dissection. IMPRESSION: No acute intracranial abnormality at CTA. No significant carotid or vertebral artery stenosis or dissection. Please note that all CT scans at this facility use dose modulation, iterative reconstruction, and/or weight-based dosing when appropriate to reduce radiation dose to as low as reasonably achievable. Dictated by Ajit Escobedo MD @ 10/08/2025 7:29:52 AM (Electronically Signed)
--- NOTE | 2025-10-07 12:24 | CRLHL7_ITS ---
For Patients: As a result of the Century Cures Act, medical imaging exams and procedure reports are released immediately into your electronic medical record. You may view this report before your referring provider. If you have questions, please contact your health care provider. Indication: Transient global amnesia. Technique: Multiplanar multisequence MR imaging of the brain prior to and following intravenous administration of 25 mL Dotarem. Comparison: CT brain 10/07/2025. Findings: The ventricles and sulci are within normal limits for patient age. No mass effect or midline shift. A few small FLAIR hyperintensities in the supratentorial white matter, typical for minimal chronic microvascular ischemic changes. No diffusion restriction to suggest acute infarction. No intracranial hemorrhage or pathologic extra-axial fluid collection. No pathologic intracranial enhancement. The major arterial flow voids of the skull base are preserved. Globes are asymmetric. Mild ethmoid sinus mucosal thickening. Mastoid air cells are clear. Impression: 1. No acute intracranial abnormality. 2. Minimal chronic microvascular ischemic changes. Dictated by Tao Nino MD @ 10/07/2025 5:15:29 PM (Electronically Signed)
[2025-10-07 12:44] LABS: Hematocrit* 41.1 % (33.0-51.0); Hemoglobin* 12.7 gm/dL (12.0-16.0); Immature Granulocytes Pct Auto 0.8 %; Mean Corpuscular HGB Conc 31 gm/dL (32-36); Mean Corpuscular Hemoglobin 28 pg (26-34); Mean Corpuscular Volume 89 fL (80-100); RDW Coefficient of Variation % 13.6 % (11.5-15.5); Red Blood Count* 4.60 m/uL (4.00-5.20); White Blood Count* 11.16 K/uL (4.50-11.00)
[2025-10-07 12:49] LABS: Immature Granulocytes Abs Auto 0.10 K/uL (0.00-0.30); Lymphocytes Absolute Auto 2.10 K/uL (0.90-2.90); Slide Review Reflex No
[2025-10-07 13:03] LABS: Albumin* 4.7 g/dL (3.3-5.0); Chloride* 101 mmol/L (96-114); Potassium* 4.4 mmol/L (3.6-5.1); Sodium* 138 mmol/L (135-149)
[2025-10-07 13:06] LABS: Alanine Aminotransferase* 36 U/L (4-35); Alkaline Phosphatase* 134 U/L (40-150); Anion Gap 10 mEq/L (7-15); Aspartate Amino Transferase* 34 U/L (12-35); Bilirubin Total* 0.7 mg/dL (0.1-1.5); Blood Urea Nitrogen* 20 mg/dL (7-30); Calcium* 9.6 mg/dL (8.4-10.6); Carbon Dioxide* 27 mmol/L (20-32); Creatinine* 1.0 mg/dL (0.5-1.5); Est. Creatinine Clearance* 46.13; Estimated Glomerular Filt Rate 64 ml/min; Glucose* 107 mg/dL (60-115); Total Protein* 8.5 g/dL (6.0-8.3)
--- NOTE | 2025-10-07 13:20 | ED.GENADULT ---
HPI - General Adult General Date Seen: 10/07/25 Chief complaint: Altered Mental Status Stated complaint: High BP memory problems Time Seen by Provider: 10/07/25 11:55 Source: patient and other (Friend) Mode of arrival: ambulatory Limitations: no limitations History of Present Illness HPI narrative: Patient is a 64-year-old female presenting to the emergency department with her friend. She is presenting due to concern about memory issues. She has a history arthritis and hypertension. Patient states she does not remember much from today at all. She remembers waking up and feeling all right. Remember she ate a bowl of cereal at some point but unsure how much. She does not remember going to work in states she remembers nothing further until she got urgent care. She remembers being in urgent care but nothing that happened at urgent care. She also has a hard time telling me what happened yesterday. She vaguely remembers what she did at work but cannot give any details. Her friend works with her and states she seemed to be acting weird today and that was when the reasons they brought her to Urgent Care. The friend saw her yesterday morning right when they got to work but states she did not speak to her the rest of the day so she is unsure how the patient was yesterday. She states the patient still seems to be acting weird and having memory issues. By time I spoke to the patient she already had head CT scan ordered in triage and she just returned from CT scan 5 for 10 minutes earlier. She cannot say for certain if she walked back but she states she believe she did. Is able to tell me the month, year, place and why she is here. Is able to identify herself and her friend. She states she feels otherwise fine. Denies any recent falls. Denies any previous history memory issues. Denies chest pain, shortness of breath, headache, lightheadedness, weakness, numbness, abdominal pain. States she has a history of dizziness but that is chronic for her and is positional. She has been told before is BPPV and she feels asymptomatic today. Is concerned because she took her Monday and Monday morning pills today. These include vitamin-D, meloxicam, lisinopril, propanolol. No other concerns noted Related Data Home Medications ?Medication ?Instructions ?Recorded ?Confirmed lisinopril 10 mg tablet 10 mg PO DAILY 10/07/25 10/07/25 meloxicam 15 mg tablet 15 mg PO DAILY 10/07/25 10/07/25 propranolol 40 mg tablet 40 mg PO BID 10/07/25 10/07/25 Allergies Allergy/AdvReac Type Severity Reaction Status Date / Time Penicillins Allergy Mild Verified 10/07/25 10:52 Review of Systems Status of ROS: Reports: 10 or more systems reviewed and unremarkable except as noted in History and below Exam Narrative: Exam Narrative: Const: Well-nourished, Well-developed, in no distress Eyes: PERRL, no conjunctival injection, and symmetrical lids HENT: Atraumatic external nose and ears. Moist mucous membranes. Neck: Symmetric, trachea midline, No thyromegaly. CVS: RRR, No murmurs or gallops. Peripheral pulses 2+ and equal in all extremities RESP: Unlabored respiratory effort. Clear to auscultation bilaterally. GI: Nontender/Nondistended, No rebound or guarding. MSK:Extremities w/o deformity, Normal Active ROM Skin: Warm, Dry. No rashes or lesions. Neuro: Normal Muscle tone, Cranial nerves 2-12 grossly intact, normal [id number], normal [id number], normal gait, normal strength 5/5 upper lower extremities bilaterally, normal sensation upper and lower extremities bilaterally, normal rapid alternating movements. Psych: Awake, Alert, & Oriented x3. Appropriate mood and affect. Const: Vital Signs, click to edit/add: Vital Signs - 24 hr 10/07/25 11:31 10/07/25 14:32 10/07/25 17:05 Temperature 97.8 F Pulse Rate 62 61 Pulse Rate [Pulse Oximeter] 73 Respiratory Rate 20 16 18 Blood Pressure 192/87 H 136/59 L Blood Pressure [Ri ght Upper Arm] 169/94 H Pulse Oximetry 94 96 95 Oxygen Delivery Me thod Room Air Room Air Room Air Course Vital Signs Vital signs: Initial Vital Signs Temperature 97.8 F 10/07/25 11:31 Temperature Source Temporal Artery Scan 10/07/25 11:31 Pulse Rate 73 10/07/25 11:31 Respiratory Rate 20 10/07/25 11:31 Blood Pressure 169/94 H 10/07/25 11:31 Blood Pressure Mean 119 H 10/07/25 11:31 Pulse Oximetry 94 10/07/25 11:31 Oxygen Delivery Method Room Air 10/07/25 11:31 Vital Signs Temperature 97.8 F 10/07/25 11:31 Pulse Rate 73 10/07/25 11:31 Respiratory Rate 20 10/07/25 11:31 Blood Pressure 169/94 H 10/07/25 11:31 Pulse Oximetry 94 10/07/25 11:31 Oxygen Delivery Method Room Air 10/07/25 11:31 Temperature 97.8 F 10/07/25 11:31 Pulse Rate 61 10/07/25 17:05 Respiratory Rate 18 10/07/25 17:05 Blood Pressure 136/59 L 10/07/25 17:05 Pulse Oximetry 95 10/07/25 17:05 Oxygen Delivery Method Room Air 10/07/25 17:05 Medications Administered Medications: Discontinued Medications Generic Name Dose Route Start Last Admin Trade Name Freq PRN Reason Stop Dose Admin Lorazepam 0.5 mg 10/07/25 15:44 10/07/25 15:49 Lorazepam 0.5 Mg Tablet PO 10/07/25 15:45 0.5 mg ONCE ONE Administration Medical Decision Making [facility] Narrative Medical decision making narrative: Patient is a 64-year-old female presenting to the emergency department for memory issues. Based on her description this sounds like transient global amnesia although she still having some issues with memory. Him concern for possible infection, electrolyte abnormalities, intracranial mass. I did speak to Dr. Romano of [facility]. She recommends CT scan of the head along with CTA head and neck. Also recommend doing MRI with and without contrast. Will also order CBC, magnesium, urinalysis, CMP, urine drug screen. Patient's CT scan of her head shows no acute concerning abnormalities. Lab work returned showing no acute concerning abnormalities. Drug screen is negative. Dr. Huerta of [facility] ended up seeing the patient over the monitor and spoke to her. He states this sounds like transient global amnesia from his standpoint also. CTA is interpreted by myself and the radiologist showing no acute concerning abnormalities. These are preliminary reads. Prior to going to MRI spoke to the patient again and she seems to be back to normal. Her brothers in the room with her and states she seems to be acting normal now. MRI reviewed by myself and the radiologist shows no acute concerning abnormalities. I spoke to her again and she has been able to remember her conversation with Dr. Huerta and is able to remember our conversation from earlier. She will be discharged with a diagnosis of transient global amnesia. She is agreeable to this plan. Lab Data Labs: Lab Results 10/07/25 10/07/25 Range/Units 12:18 14:38 WBC 11.16 H (4.50-11.00) K/uL RBC 4.60 (4.00-5.20) m/uL Hgb 12.7 (12.0-16.0) gm/dL Hct 41.1 (33.0-51.0) % MCV 89 (80-100) fL MCH 28 (26-34) pg MCHC 31 L (32-36) gm/dL RDW Coeff of Jono 13.6 (11.5-15.5) % Plt Count 344 (140-440) K/uL Neut % (Auto) 73.1 H (42.0-72.0) % Lymph % (Auto) 18.5 L (20-44) % [place] % (Auto) 5.9 (0.0-11.0) % Eos % (Auto) 1.3 (0.0-7.0) % Baso % (Auto) 0.4 (0.0-3.0) % Neut # (Auto) 8.20 H (1.7-7.0) K/uL Lymph # (Auto) 2.10 (0.90-2.90) K/uL [place] # (Auto) 0.70 (0.00-0.90) K/UL Eos # (Auto) 0.10 (0.00-0.50) K/uL Baso # (Auto) 0.00 (0.00-0.30) K/uL Abs Immat Gran (auto) 0.10 (0.00-0.30) K/uL Imm/Tot Granulo (auto) 0.8 % Sodium 138 (135-149) mmol/L Potassium 4.4 (3.6-5.1) mmol/L Chloride 101 (96-114) mmol/L Carbon Dioxide 27 (20-32) mmol/L Anion Gap 10 (7-15) mEq/L BUN 20 (7-30) mg/dL Creatinine 1.0 (0.5-1.5) mg/dL Estimated Creat Clear 46.13 Estimated GFR 64 ml/min Glucose 107 (60-115) mg/dL Calcium 9.6 (8.4-10.6) mg/dL Magnesium 2.2 (1.5-2.6) mg/dL Total Bilirubin 0.7 (0.1-1.5) mg/dL AST 34 (12-35) U/L ALT 36 H (4-35) U/L Alkaline Phosphatase 134 (40-150) U/L Total Protein 8.5 H (6.0-8.3) g/dL Albumin 4.7 (3.3-5.0) g/dL Urine Color Yellow (Yellow) Urine Appearance Clear (Clear) Urine pH 7.0 (5.0-8.5) Ur Specific [place] 1.015 (1.000-1.030) Urine Protein Negative (Negative) Urine Glucose (UA) Negative (Negative) Urine Ketones 1+ A (Negative) Urine Blood Negative (Negative) Urine Nitrite Negative (Negative) Urine Bilirubin Negative (Negative) Urine Urobilinogen 0.2 (0.2-1.0) Ur Leukocyte Esterase Negative (Negative) Urine RBC 0-2 (0-2) Urine WBC 0-2 (0-5) Ur Squamous Epith Cells None (None-Few) Urine Bacteria None (None) Urine Opiates Screen Negative (Negative) Ur Oxycodone Screen Negative (Negative) Urine Methadone Screen Negative (Negative) Ur Barbiturates Screen Negative (Negative) U Tricyclic Antidepress Negative (Negative) Ur Phencyclidine Scrn Negative (Negative) Ur Amphetamines Screen Negative (Negative) U Methamphetamines Scrn Negative (Negative) U Benzodiazepines Scrn Negative (Negative) Urine Cocaine Screen Negative (Negative) U Marijuana (THC) Screen Negative (Negative) Ur Drug Screen Comment See Note Imaging Data CT scan head: Attestation: I have reviewed the pertinent imaging results. Radiologist's impression: Normal head CT. Please note that all CT scans at this facility use dose modulation, iterative reconstruction, and/or weight-based dosing when appropriate to reduce radiation dose to as low as reasonably achievable. Dictated by Sera Pena MD @ 10/07/2025 12:05:31 PM CTA neck: Attestation: I have reviewed the pertinent imaging results. Radiologist's impression: Preliminary Report: 1. No arterial dissection or significant arterial stenosis. 2. Tortuous cervical internal carotid arteries, which can be a normal variant or age related finding. Read by:?Juan Lagunas MD @10/07/2025 2:43:38 PM CTA head: Attestation: I have reviewed the pertinent imaging results. Radiologist's impression: Preliminary Report: 1. No large vessel occlusion. 2. Moderate stenosis of the right M2 inferior division. Read by:?Juan Lagunas MD @10/07/2025 2:40:37 PM MR Brain: Attestation: I have reviewed the pertinent imaging results. Radiologist's impression: 1. No acute intracranial abnormality. 2. Minimal chronic microvascular ischemic changes. Dictated by Tao Nino MD @ 10/07/2025 5:15:29 PM Discharge Plan Discharge Clinical Impression: Transient global amnesia Patient Disposition: Home, Self-Care Condition: Stable Instructions: Transient Global Amnesia (ED) Additional Instructions: Return to emergency department if symptoms return or if he develops any new or worsening symptoms. Follow up with your primary care provider. Prescriptions: No Action propranolol 40 mg tablet 40 mg PO BID lisinopril 10 mg tablet 10 mg PO DAILY meloxicam 15 mg tablet 15 mg PO DAILY Follow Up/Referrals: Rafal Glynn MD [Primary Care Provider, Family Practice] Stand Alone Forms: [facility] [employer] Info Instructions
[2025-10-07 14:32] VITALS: BP 192/87; PULSE 62; RESP 16; O2SAT 96
[2025-10-07 14:54] LABS: Appearance Urine Clear (Clear); Cannabinoid Screen Urine Negative (Negative); Methamphetamines Screen Urine Negative (Negative); Tricyclic Antidepressant Urine Negative (Negative)
[2025-10-07 17:05] VITALS: BP 136/59; PULSE 61; RESP 18; O2SAT 95
== END 2025-10-07 17:34 | disposition home or self-care (01) ==
PROVIDERS: Emergency Provider Student in an Organized Health Care Education/Training Program; PCP Family Medicine
DX: G45.4 Transient global amnesia (principal)
CPT/HCPCS: 36415; 70450; 70496; 70498; 70553; 80053; 80306; 81001; 83735; 85025; 99285; A9270; A9575; Q9967